=== PATIENT | female | born 1990 | race African-American/Black ===

== ENCOUNTER 2016-12-06 16:21 | Emergency (ER) | payer OTHER ==
[~2016-12-06] VITALS: Ht 160 cm; Wt 97.5 kg
[~2016-12-06 16:21] MED LIST: ACCUNEB SO1.25 MG/1 INH; ACETAZOLAMIDE250 M1 PO; ACETAZOLAMIDE500 MG PO; ALBUTEROL2.5 MG/32; APAP500; IRON325 PO; K-DUR 20 MEQ T20 MEQ PO; METHOCARBAMOL500 M2 PO; NAPROXEN500 MG PO; NORCO 5-325 TA1 EACH PO; OXYCODONE HCL15 MG PO; OXYCONTIN15 MG PO; PANTOPRAZOLE SO40 M1 PO; PRENATAL COMPL1 EACH PO; TOPAMAX 100 MG100 MG PO; TYLENOL W/CODEI1 TA2 PO; VITAMIN D400 UNI1
[2016-12-06 17:37] LABS: URINE BILIRUBIN NEGATIVE (Negative); URINE BLOOD TRACE (Negative); URINE COLOR YELLOW; URINE GLUCOSE-RANDOM* NEGATIVE (Negative); URINE KETONES NEGATIVE (Negative); URINE NITRITE POSITIVE (Negative); URINE PROTEIN (DIPSTICK) NEGATIVE (Negative); URINE UROBILINOGEN 0.2 E.U./dl (0.2-1.0)
[2016-12-06 17:49] LABS: SQUAMOUS 4-10 Moderate /LPF (0-3); URINE RBC 0-2 Rare /HPF (0-2); URINE WBC 6-15 Few /HPF (0-5)
[2016-12-06 17:50] LABS: BACTERIA >30 Many /HPF (None Seen); CASTS None Seen /LPF (None Seen); CRYSTALS None Seen /LPF (None Seen)
[2016-12-06 17:58] LABS: HEMATOCRIT 34.3 % (37.0-47.0); HEMOGLOBIN 10.6 gm/dL (12.0-15.0); MCH 23.2 pg (26.0-34.0); MCHC 30.9 % (28.0-37.0); MCV 75.1 fL (80.0-100.0); RBC 4.57 mil/uL (4.20-5.00); WBC 11.1 thou/uL (4.0-11.0)
[2016-12-06 18:06] LABS: CALCIUM 8.1 mg/dL (8.5-10.1); CREATININE 0.8 mg/dL (0.6-1.3); POTASSIUM 3.9 mmol/L (3.5-5.1)
[2016-12-06 18:13] LABS: ALBUMIN 3.1 g/dL (3.4-5.0); TOTAL BILIRUBIN 0.2 mg/dL (<0.1-1.0); TOTAL PROTEIN 7.1 g/dL (6.4-8.2)
[2016-12-06] MEDS ORDERED: KEFLEX500 MG PO (18:17)
[2016-12-31] MEDS ORDERED: PHENERGAN 25 MG25 M1 PO (22:23)
== END 2016-12-06 18:39 | disposition home or self-care (01) ==
LOC: ER 16:21
PROVIDERS: Nurse Practitioner Family
DX: R51 Headache (principal); G89.29 Other chronic pain; N39.0 Urinary tract infection, site not specified; G93.2 Benign intracranial hypertension; J45.909 Unspecified asthma, uncomplicated; Z88.5 Allergy status to narcotic agent; Z88.0 Allergy status to penicillin; Z88.2 Allergy status to sulfonamides; Z88.8 Allergy status to other drugs, medicaments and biological substances; Z91.040 Latex allergy status

== ENCOUNTER 2017-02-26 12:13 | Emergency (ER) | payer OTHER ==
[~2017-02-26] VITALS: Ht 160 cm; Wt 90.7 kg
[~2017-02-26 12:13] MED LIST changes: +KEFLEX500 MG PO; +PHENERGAN 25 MG25 M1 PO
[2017-02-26] MEDS ORDERED: PLAVIX 75 MG TA75 M1 PO (12:47)
[2017-02-26 12:51] LABS: URINE BILIRUBIN NEGATIVE (Negative); URINE BLOOD TRACE (Negative); URINE COLOR YELLOW; URINE GLUCOSE-RANDOM* NEGATIVE (Negative); URINE KETONES NEGATIVE (Negative); URINE NITRITE NEGATIVE (Negative); URINE PROTEIN (DIPSTICK) NEGATIVE (Negative); URINE SPECIFIC GRAVITY <= 1.005 (1.003-1.035); URINE UROBILINOGEN 0.2 E.U./dl (0.2-1.0)
[2017-02-26 13:01] LABS: ABSOLUTE NEUTROPHILS 2.2 thou/uL (1.4-8.2); BASOPHILS 0.8 % (0.0-2.0); EOSINOPHILS 2.4 % (0.0-3.0); HEMATOCRIT 32.8 % (37.0-47.0); HEMOGLOBIN 10.3 gm/dL (12.0-15.0); LYMPHOCYTES 33.8 % (24.0-44.0); MCH 22.9 pg (26.0-34.0); MCHC 31.3 g/dL (28.0-37.0); MCV 73.4 fL (80.0-100.0); PLATELET COUNT 267 thou/uL (150-400); RBC 4.47 mil/uL (4.20-5.00); RDW 19.4 % (10.5-14.5)
[2017-02-26 13:02] LABS: MANUAL DIFF NO
[2017-02-26 13:08] LABS: CALCIUM 8.8 mg/dL (8.5-10.1); CREATININE 0.7 mg/dL (0.6-1.3); POTASSIUM 3.6 mmol/L (3.5-5.1)
[2017-02-26 14:10] LABS: ANISOCYTOSIS 2+; HYPOCHROMASIA 3+; MICROCYTES 3+
== END 2017-02-26 15:20 | disposition home or self-care (01) ==
LOC: ER 12:13
PROVIDERS: Emergency Medicine
DX: R51 Headache (principal); J45.909 Unspecified asthma, uncomplicated; G93.5 Compression of brain; M32.9 Systemic lupus erythematosus, unspecified; Z86.2 Personal history of diseases of the blood and blood-forming organs and certain disorders involving the immune mechanism; Z98.2 Presence of cerebrospinal fluid drainage device; Z88.6 Allergy status to analgesic agent; Z91.040 Latex allergy status; Z88.8 Allergy status to other drugs, medicaments and biological substances; Z88.2 Allergy status to sulfonamides

== ENCOUNTER 2017-05-12 02:07 | Emergency (ER) | payer OTHER ==
[~2017-05-12] VITALS: Ht 160 cm; Wt 104.3 kg
[~2017-05-12 02:07] MED LIST changes: +PLAVIX 75 MG TA75 M1 PO
[2017-05-12 02:33] LABS: URINE BILIRUBIN NEGATIVE (Negative); URINE BLOOD NEGATIVE (Negative); URINE COLOR YELLOW; URINE GLUCOSE-RANDOM* NEGATIVE (Negative); URINE KETONES NEGATIVE (Negative); URINE LEUKOCYTES-REFLEX 1+ (Negative); URINE PROTEIN (DIPSTICK) NEGATIVE (Negative); URINE UROBILINOGEN 0.2 E.U./dl (0.2-1.0)
[2017-05-12 02:48] LABS: CASTS None Seen /LPF (None Seen); SQUAMOUS None Seen /LPF (0-3); URINE RBC None Seen /HPF (0-2); URINE WBC-REFLEX 0-5 Rare /HPF (0-5)
[2017-05-12 02:49] LABS: CRYSTALS None Seen /LPF (None Seen)
[2017-05-12 03:18] LABS: AMP/METHAMP Negative (Negative); BARBITURATES Negative (Negative); BENZODIAZEPINES Negative (Negative); COCAINE Negative (Negative); METHADONE Negative (Negative); OPIATES POSITIVE (Negative); PCP Negative (Negative); THC Negative (Negative)
[2017-05-12 05:21] LABS: ABSOLUTE NEUTROPHILS 3.6 thou/uL (1.4-8.2); EOSINOPHILS 1.4 % (0.0-3.0); HEMATOCRIT 32.6 % (37.0-47.0); HEMOGLOBIN 10.3 gm/dL (12.0-15.0); LYMPHOCYTES 35.3 % (24.0-44.0); MCH 23.6 pg (26.0-34.0); MCHC 31.5 g/dL (28.0-37.0); MCV 74.9 fL (80.0-100.0); MONOCYTES 7.3 % (1.0-8.0); PLATELET COUNT 205 thou/uL (150-400); RBC 4.35 mil/uL (4.20-5.00); RDW 17.9 % (10.5-14.5); WBC 6.5 thou/uL (4.0-11.0)
[2017-05-12 05:26] LABS: MANUAL DIFF NO
[2017-05-12 05:27] LABS: CALCIUM 8.9 mg/dL (8.5-10.1); CREATININE 0.9 mg/dL (0.6-1.0); POTASSIUM 3.3 mmol/L (3.5-5.1)
[2017-05-12 10:14] LABS: CSF GLUCOSE 46 mg/dL (40-70)
[2017-05-12 10:17] LABS: CSF CLARITY CLEAR; CSF COLOR COLORLESS; CSF WBC 9 /mm3 (0-10); MANUAL DIFF NO; NUMBER OF TUBES 4; VOLUME 20 ml
[2017-05-12] MEDS ORDERED: NORCO 5-325 TA1 EACH PO (10:35)
== END 2017-05-12 10:44 | disposition home or self-care (01) ==
LOC: ER 02:07
PROVIDERS: Emergency Medicine
DX: G93.2 Benign intracranial hypertension (principal); Z86.61 Personal history of infections of the central nervous system; J45.909 Unspecified asthma, uncomplicated; Z98.2 Presence of cerebrospinal fluid drainage device; M32.9 Systemic lupus erythematosus, unspecified; Z88.6 Allergy status to analgesic agent; Z88.5 Allergy status to narcotic agent; Z91.040 Latex allergy status; Z88.0 Allergy status to penicillin; Z88.1 Allergy status to other antibiotic agents; Z88.2 Allergy status to sulfonamides; Z88.8 Allergy status to other drugs, medicaments and biological substances

== ENCOUNTER 2017-06-14 10:42 | Emergency (ER) | payer OTHER ==
[~2017-06-14] VITALS: Ht 157.5 cm; Wt 90.7 kg
== END 2017-06-14 11:42 | disposition home or self-care (01) ==
LOC: ER 10:42
DX: R51 Headache (principal); J45.909 Unspecified asthma, uncomplicated; Z86.61 Personal history of infections of the central nervous system; Z98.2 Presence of cerebrospinal fluid drainage device; Z88.6 Allergy status to analgesic agent; Z91.040 Latex allergy status; Z88.1 Allergy status to other antibiotic agents; Z88.0 Allergy status to penicillin; Z88.2 Allergy status to sulfonamides; Z88.8 Allergy status to other drugs, medicaments and biological substances

== ENCOUNTER 2017-07-17 20:29 | Emergency (ER) | payer OTHER ==
[~2017-07-17] VITALS: Ht 160 cm; Wt 90.7 kg
[2017-07-17] MEDS ORDERED: PERCOCET PO (21:40)
== END 2017-07-17 22:48 | disposition home or self-care (01) ==
LOC: ER 20:29
DX: R51 Headache (principal); J45.909 Unspecified asthma, uncomplicated; Z98.2 Presence of cerebrospinal fluid drainage device; Z86.61 Personal history of infections of the central nervous system; Z88.0 Allergy status to penicillin; Z88.1 Allergy status to other antibiotic agents; Z88.2 Allergy status to sulfonamides; Z88.5 Allergy status to narcotic agent; Z88.6 Allergy status to analgesic agent; Z91.040 Latex allergy status; Z88.8 Allergy status to other drugs, medicaments and biological substances

== ENCOUNTER 2017-10-16 13:51 | Emergency (ER) | payer OTHER ==
[~2017-10-16] VITALS: Ht 160 cm; Wt 99.8 kg
[~2017-10-16 13:51] MED LIST changes: +PERCOCET PO
[2017-10-16] MEDS ORDERED: CLEOCIN HCL150 MG PO (14:11)
[2017-10-16] MEDS ORDERED: MOBIC7.5 MG PO (14:11)
== END 2017-10-16 14:39 | disposition home or self-care (01) ==
LOC: ER 13:51
DX: K08.89 Other specified disorders of teeth and supporting structures (principal); K02.9 Dental caries, unspecified; J45.909 Unspecified asthma, uncomplicated; Z98.890 Other specified postprocedural states; Z88.6 Allergy status to analgesic agent; Z88.8 Allergy status to other drugs, medicaments and biological substances; Z88.1 Allergy status to other antibiotic agents; Z88.2 Allergy status to sulfonamides; Z88.0 Allergy status to penicillin

== ENCOUNTER 2018-05-03 19:35 | Emergency (ER) | payer OTHER ==
[~2018-05-03] VITALS: Ht 160 cm; Wt 117.9 kg
--- NOTE | ~2018-05-03 | EKG ---
[place] [address] [employer] [address] ELECTROCARDIOGRAM REPORT Name: PRANAV FORBES Room #: DEP Jael#: [id number] Admission: 05/03/18 Attend Phys: Discharge: 05/03/18 Date of : 88 Report #: [id number] THIS REPORT FOR: //name// 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
[~2018-05-03 19:35] MED LIST changes: +CLEOCIN HCL150 MG PO; +MOBIC7.5 MG PO
[2018-05-03 21:05] LABS: ABSOLUTE NEUTROPHILS 4.8 thou/uL (1.4-8.2); BASOPHILS 1.1 % (0.0-2.0); HEMOGLOBIN 11.1 gm/dL (12.0-15.0); LYMPHOCYTES 25.4 % (24.0-44.0); MCH 24.4 pg (26.0-34.0); MCHC 31.7 g/dL (28.0-37.0); MONOCYTES 8.2 % (1.0-8.0); PLATELET COUNT 205 thou/uL (150-400); POLYS 64.3 % (36.0-66.0); RBC 4.54 mil/uL (4.20-5.00); RDW 16.3 % (10.5-14.5); WBC 7.4 thou/uL (4.0-11.0)
[2018-05-03 21:13] LABS: CALCIUM 8.8 mg/dL (8.5-10.1); CREATININE 0.8 mg/dL (0.6-1.0); POTASSIUM 3.7 mmol/L (3.5-5.1)
[2018-05-03 21:19] LABS: ALBUMIN 3.4 g/dL (3.4-5.0); TOTAL BILIRUBIN 0.2 mg/dL (<0.1-1.0); TOTAL PROTEIN 7.7 g/dL (6.4-8.2)
== END 2018-05-03 23:30 | disposition short-term general hospital (02) ==
LOC: ER 19:35
PROVIDERS: Emergency Medicine
DX: R51 Headache (principal); M43.6 Torticollis; R00.0 Tachycardia, unspecified; G00.9 Bacterial meningitis, unspecified; J45.909 Unspecified asthma, uncomplicated; Z88.0 Allergy status to penicillin; Z88.1 Allergy status to other antibiotic agents; Z88.6 Allergy status to analgesic agent; Z91.040 Latex allergy status; Z88.5 Allergy status to narcotic agent; Z88.2 Allergy status to sulfonamides; Z88.8 Allergy status to other drugs, medicaments and biological substances

== ENCOUNTER 2018-06-11 12:20 | Emergency (ER) | payer OTHER ==
[~2018-06-11] VITALS: Ht 160 cm; Wt 122.5 kg
[2018-06-11 13:02] LABS: URINE BILIRUBIN NEGATIVE (Negative); URINE BLOOD NEGATIVE (Negative); URINE CLARITY CLEAR; URINE COLOR YELLOW; URINE GLUCOSE-RANDOM* NEGATIVE (Negative); URINE KETONES NEGATIVE (Negative); URINE LEUKOCYTES-REFLEX NEGATIVE (Negative); URINE NITRITE-REFLEX NEGATIVE (Negative); URINE PROTEIN (DIPSTICK) NEGATIVE (Negative)
[2018-06-11 13:40] LABS: ABSOLUTE NEUTROPHILS 3.3 thou/uL (1.4-8.2); BASOPHILS 0.6 % (0.0-2.0); EOSINOPHILS 0.8 % (0.0-3.0); HEMATOCRIT 35.9 % (37.0-47.0); HEMOGLOBIN 11.4 gm/dL (12.0-15.0); LYMPHOCYTES 30.9 % (24.0-44.0); MCH 24.7 pg (26.0-34.0); MCHC 31.9 g/dL (28.0-37.0); MCV 77.6 fL (80.0-100.0); MONOCYTES 8.3 % (1.0-8.0); PLATELET COUNT 212 thou/uL (150-400); POLYS 59.4 % (36.0-66.0); RBC 4.63 mil/uL (4.20-5.00); RDW 15.5 % (10.5-14.5); WBC 5.5 thou/uL (4.0-11.0)
[2018-06-11 13:46] LABS: CREATININE 0.8 mg/dL (0.6-1.0); POTASSIUM 3.6 mmol/L (3.5-5.1)
== END 2018-06-11 16:20 | disposition home or self-care (01) ==
LOC: ER 12:20
PROVIDERS: Emergency Medicine
DX: G93.2 Benign intracranial hypertension (principal); R51 Headache; G89.29 Other chronic pain; J45.909 Unspecified asthma, uncomplicated; Z98.890 Other specified postprocedural states; Z88.1 Allergy status to other antibiotic agents; Z88.0 Allergy status to penicillin; Z88.2 Allergy status to sulfonamides; Z88.5 Allergy status to narcotic agent; Z88.6 Allergy status to analgesic agent; Z88.8 Allergy status to other drugs, medicaments and biological substances

== ENCOUNTER 2018-07-09 20:03 | Emergency (ER) | payer OTHER ==
[~2018-07-09] VITALS: Ht 160 cm; Wt 104.3 kg
[2018-07-09] MEDS ORDERED: OXYCONTIN15 MG PO (20:15)
[2018-07-09] MEDS ORDERED: ASPIR 8181 MG PO (20:16)
[2018-07-09] MEDS ORDERED: LIORESAL 10 MG10 MG PO (20:16)
[2018-07-09] MEDS ORDERED: BUTALB-APAP-CA1 EACH PO (20:17)
[2018-07-09 21:20] LABS: URINE BILIRUBIN NEGATIVE (Negative); URINE BLOOD TRACE (Negative); URINE COLOR YELLOW; URINE GLUCOSE-RANDOM* NEGATIVE (Negative); URINE KETONES TRACE (Negative); URINE LEUKOCYTES-REFLEX NEGATIVE (Negative); URINE NITRITE-REFLEX NEGATIVE (Negative); URINE PROTEIN (DIPSTICK) TRACE (Negative); URINE SPECIFIC GRAVITY >= 1.030 (1.005-1.035)
[2018-07-09 21:21] LABS: URINE CLARITY SL HAZY
[2018-07-09 22:01] LABS: ABSOLUTE NEUTROPHILS 4.1 thou/uL (1.4-8.2); BASOPHILS 0.9 % (0.0-2.0); EOSINOPHILS 1.2 % (0.0-3.0); HEMATOCRIT 33.2 % (37.0-47.0); HEMOGLOBIN 10.5 gm/dL (12.0-15.0); MCH 24.7 pg (26.0-34.0); MCHC 31.7 g/dL (28.0-37.0); MCV 77.7 fL (80.0-100.0); MONOCYTES 9.4 % (1.0-8.0); PLATELET COUNT 213 thou/uL (150-400); POLYS 56.5 % (36.0-66.0); RBC 4.27 mil/uL (4.20-5.00); RDW 15.3 % (10.5-14.5); WBC 7.2 thou/uL (4.0-11.0)
[2018-07-09 22:10] LABS: CALCIUM 8.7 mg/dL (8.5-10.1); CREATININE 0.8 mg/dL (0.6-1.0); POTASSIUM 3.3 mmol/L (3.5-5.1)
[2018-07-09 22:16] LABS: ALBUMIN 3.3 g/dL (3.4-5.0); TOTAL BILIRUBIN 0.2 mg/dL (<0.1-1.0); TOTAL PROTEIN 7.3 g/dL (6.4-8.2)
[2018-07-09 22:28] LABS: AMP/METHAMP Negative (Negative); BARBITURATES Negative (Negative); BENZODIAZEPINES Negative (Negative); COCAINE Negative (Negative); METHADONE Negative (Negative); OPIATES POSITIVE (Negative); PCP Negative (Negative)
[2018-07-09 22:44] LABS: LARGE PLATELETS FEW
== END 2018-07-09 23:40 | disposition home or self-care (01) ==
LOC: ER 20:03
PROVIDERS: Emergency Medicine
DX: G93.2 Benign intracranial hypertension (principal); G89.29 Other chronic pain; R51 Headache; R50.9 Fever, unspecified; Z76.5 Malingerer [conscious simulation]; J45.909 Unspecified asthma, uncomplicated; Z88.4 Allergy status to anesthetic agent; Z88.8 Allergy status to other drugs, medicaments and biological substances; Z88.6 Allergy status to analgesic agent; Z91.040 Latex allergy status; Z88.5 Allergy status to narcotic agent; Z88.0 Allergy status to penicillin; Z88.2 Allergy status to sulfonamides; Z86.2 Personal history of diseases of the blood and blood-forming organs and certain disorders involving the immune mechanism; Z98.890 Other specified postprocedural states

== ENCOUNTER 2018-11-25 14:20 | Emergency (ER) | payer OTHER ==
[~2018-11-25] VITALS: Ht 160 cm; Wt 90.7 kg
[~2018-11-25 14:20] MED LIST changes: +ASPIR 8181 MG PO; +BUTALB-APAP-CA1 EACH PO; +LIORESAL 10 MG10 MG PO
[2018-11-25 14:25] VITALS: BP 155/83
== END 2018-11-25 15:07 | disposition left against medical advice (07) ==
LOC: ER 14:20
DX: G93.2 Benign intracranial hypertension (principal); G89.29 Other chronic pain; R51 Headache; J45.909 Unspecified asthma, uncomplicated; M32.9 Systemic lupus erythematosus, unspecified; Z88.6 Allergy status to analgesic agent; Z88.8 Allergy status to other drugs, medicaments and biological substances; Z91.040 Latex allergy status; Z88.5 Allergy status to narcotic agent; Z88.0 Allergy status to penicillin; Z88.2 Allergy status to sulfonamides; Z98.890 Other specified postprocedural states; Z86.2 Personal history of diseases of the blood and blood-forming organs and certain disorders involving the immune mechanism

== ENCOUNTER 2019-01-06 16:42 | Emergency (ER) | payer OTHER ==
[~2019-01-06] VITALS: Ht 160 cm; Wt 111.1 kg
[2019-01-06 16:42] VITALS: BP 119/77
== END 2019-01-06 18:11 | disposition home or self-care (01) ==
LOC: ER 16:42
DX: R51 Headache (principal); R50.9 Fever, unspecified; J45.909 Unspecified asthma, uncomplicated; Z98.890 Other specified postprocedural states; Z88.2 Allergy status to sulfonamides; Z88.5 Allergy status to narcotic agent; Z88.0 Allergy status to penicillin; Z88.6 Allergy status to analgesic agent; Z88.8 Allergy status to other drugs, medicaments and biological substances; Z91.040 Latex allergy status

== ENCOUNTER 2019-05-12 19:17 | Emergency (ER) | payer OTHER ==
[2019-05-12 19:28] VITALS: BP 146/89
== END 2019-05-12 20:00 | disposition left against medical advice (07) ==
LOC: ER 19:17
DX: R50.9 Fever, unspecified (principal); R22.0 Localized swelling, mass and lump, head; R68.84 Jaw pain; J45.909 Unspecified asthma, uncomplicated; Z98.51 Tubal ligation status; Z86.61 Personal history of infections of the central nervous system; Z88.0 Allergy status to penicillin; Z88.1 Allergy status to other antibiotic agents; Z88.5 Allergy status to narcotic agent; Z88.6 Allergy status to analgesic agent; Z88.8 Allergy status to other drugs, medicaments and biological substances

== ENCOUNTER 2019-06-04 17:55 | Emergency (ER) | payer OTHER ==
[~2019-06-04] VITALS: Ht 160 cm; Wt 99.8 kg
[2019-06-04 19:08] VITALS: BP 148/87
== END 2019-06-04 19:48 | disposition left against medical advice (07) ==
LOC: ER 17:55
DX: G93.2 Benign intracranial hypertension (principal); J45.909 Unspecified asthma, uncomplicated; Z88.2 Allergy status to sulfonamides; Z88.6 Allergy status to analgesic agent; Z88.5 Allergy status to narcotic agent; Z91.040 Latex allergy status; Z88.8 Allergy status to other drugs, medicaments and biological substances; Z98.51 Tubal ligation status; Z86.2 Personal history of diseases of the blood and blood-forming organs and certain disorders involving the immune mechanism; Z98.890 Other specified postprocedural states

== ENCOUNTER 2019-11-25 08:03 | Emergency (ER) | payer OTHER ==
[~2019-11-25] VITALS: Ht 160 cm; Wt 117.9 kg
[2019-11-25 08:06] VITALS: BP 151/82
[2019-11-25 08:24] LABS: URINE BILIRUBIN NEGATIVE (Negative); URINE BLOOD TRACE (Negative); URINE CLARITY SL CLOUDY; URINE COLOR YELLOW; URINE GLUCOSE-RANDOM* NEGATIVE (Negative); URINE KETONES NEGATIVE (Negative); URINE LEUKOCYTES-REFLEX 2+ (Negative); URINE NITRITE-REFLEX NEGATIVE (Negative); URINE PROTEIN (DIPSTICK) NEGATIVE (Negative)
[2019-11-25 08:31] LABS: SQUAMOUS 4-10 Moderate /LPF (0-3)
[2019-11-25 08:32] LABS: BACTERIA-REFLEX 1-9 Few /HPF (None Seen); CASTS None Seen /LPF (None Seen); CRYSTALS None Seen /LPF (None Seen); URINE RBC 0-2 Rare /HPF (0-2)
[2019-11-25] MEDS ORDERED: KEFLEX500 M1 PO (09:31)
== END 2019-11-25 10:09 | disposition home or self-care (01) ==
LOC: ER 08:03
PROVIDERS: Emergency Medicine
DX: N75.0 Cyst of Bartholin's gland (principal); N39.0 Urinary tract infection, site not specified; J45.909 Unspecified asthma, uncomplicated; Z86.2 Personal history of diseases of the blood and blood-forming organs and certain disorders involving the immune mechanism; Z98.890 Other specified postprocedural states; Z88.6 Allergy status to analgesic agent; Z88.5 Allergy status to narcotic agent; Z88.0 Allergy status to penicillin; Z88.2 Allergy status to sulfonamides; Z88.8 Allergy status to other drugs, medicaments and biological substances

== ENCOUNTER 2020-06-03 13:59 | Emergency (ER) | payer OTHER ==
[~2020-06-03] VITALS: Ht 160 cm; Wt 117.9 kg
[~2020-06-03 13:59] MED LIST changes: +KEFLEX500 M1 PO
[2020-06-03 14:05] VITALS: BP 147/93
== END 2020-06-03 14:57 | disposition home or self-care (01) ==
LOC: ER 13:59
DX: M54.5 Low back pain (principal); J45.909 Unspecified asthma, uncomplicated; Z98.51 Tubal ligation status; Z98.890 Other specified postprocedural states; Z79.899 Other long term (current) drug therapy; Z79.82 Long term (current) use of aspirin; Z88.8 Allergy status to other drugs, medicaments and biological substances; Z88.6 Allergy status to analgesic agent; Z91.040 Latex allergy status; Z88.5 Allergy status to narcotic agent; Z88.0 Allergy status to penicillin; Z88.2 Allergy status to sulfonamides; V89.2XXA Person injured in unspecified motor-vehicle accident, traffic, initial encounter; Y93.89 Activity, other specified; Y92.488 Other paved roadways as the place of occurrence of the external cause; Y99.8 Other external cause status

== ENCOUNTER 2021-04-05 14:17 | Emergency (ER) | payer OTHER ==
[~2021-04-05] VITALS: Ht 160 cm; Wt 113.4 kg
--- NOTE | 2021-04-05 14:44 | EKG ---
[place] [address] [address] [place] [employer] [place] [address] ELECTROCARDIOGRAM REPORT Name: PRANAV FORBES Room #: [facility].#: [id number] Admission: Attend Phys: Discharge: Date of : [birth year] Report #: [id number] 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 04/05/21 1444 1425 1425 Chivo Casas MD, FACC /EPI
[2021-04-05 15:26] LABS: BASOPHILS 0.2 % (0.0-2.0); HEMOGLOBIN 11.1 gm/dL (12.0-15.0); LYMPHOCYTES 21.2 % (24.0-44.0); MCH 23.4 pg (26.0-34.0); MCHC 29.4 g/dL (28.0-37.0); MCV 79.6 fL (80.0-100.0); MONOCYTES 8.3 % (1.0-8.0); PLATELET COUNT 142 thou/uL (150-400); POLYS 70.3 % (36.0-66.0); RBC 4.77 mil/uL (4.20-5.00); RDW 15.8 % (10.5-14.5); WBC 4.3 thou/uL (4.0-11.0)
[2021-04-05 15:32] LABS: ANION GAP 7 mmol/L (7-16); BUN 11 mg/dL (7-18); CALCIUM 8.9 mg/dL (8.5-10.1); CHLORIDE 102 mmol/L (98-107); CO2 29 mmol/L (21-32); CREATININE 0.8 mg/dL (0.6-1.0); GLUCOSE 116 mg/dL (74-106); SODIUM 138 mmol/L (136-145)
[2021-04-05] MEDS ORDERED: oxycodone PO (15:36)
[2021-04-05 15:41] LABS: TROPONIN-I <0.06 ng/mL (<0.06)
[2021-04-05] MEDS ORDERED: ZPAK PO (16:09)
[2021-04-05] MEDS ORDERED: PREDNISONE 20 M20 MG PO (16:10)
[2021-04-05 16:23] VITALS: BP 127/77
== END 2021-04-05 16:39 | disposition home or self-care (01) ==
LOC: ER 14:17
PROVIDERS: Nurse Practitioner
DX: U07.1 COVID-19 (principal); J45.909 Unspecified asthma, uncomplicated; Z98.51 Tubal ligation status; Z98.890 Other specified postprocedural states; Z87.42 Personal history of other diseases of the female genital tract; Z79.899 Other long term (current) drug therapy; Z79.82 Long term (current) use of aspirin; Z88.8 Allergy status to other drugs, medicaments and biological substances; Z88.6 Allergy status to analgesic agent; Z91.041 Radiographic dye allergy status; Z88.0 Allergy status to penicillin; Z88.2 Allergy status to sulfonamides